=== PATIENT | female | born 1955 | race Caucasian/White ===

== ENCOUNTER 2021-07-27 16:00 | Emergency (ER) | payer OTHER ==
--- NOTE | 2021-07-27 16:50 | RAD REPORT ---
EXAM DESCRIPTION: RAD - Wrist Right 3 View - 07/27/2021 4:41 pm CLINICAL HISTORY: Right wrist pain status post injury FINDINGS: Impacted comminuted fracture of the distal radius with angulation present at the fracture site. No gross dislocation seen
[2021-07-27] MEDS ORDERED: NA CHLORIDE 0.9% 1,000 ML ONE (18:36)
[2021-07-27] MEDS ORDERED: KETAMINE HCL 500 MG/5 ML VIAL ONE (19:45)
--- NOTE | 2021-07-27 20:28 | RAD REPORT ---
EXAM DESCRIPTION: RAD - Wrist Right 2 View - 07/27/2021 8:13 pm CLINICAL HISTORY: Radial fracture FINDINGS: Splint immobilizes distal radial fracture in good alignment. Chip fracture from the ulnar styloid process
--- NOTE | 2021-07-27 20:32 | EDPHYS ---
Physician Documentation [facility] Name: Meeta Flores Age: 65 yrs Sex: Female : 1955 Arrival Date: 07/27/2021 Time: 16:13 Bed 18 Private MD: ED Physician Bucky Whitehead HPI: 07/27 18:03 This 65 yrs old Female presents to ER via Ambulatory with complaints of Fall Injury, jr8 Wrist Injury. 18:03 This is a 65-year-old female that presented to the emergency room after sustaining an jr8 accidental mechanical fall landing on her right wrist. [place] a pop with immediate deformity and swelling since the incident. Came to the emergency room for further evaluation at that time. Denies any other pain or injury from the fall. Historical: - Allergies: 16:15 No Known Allergies; ll1 - PMHx: 16:15 None; ll1 - PSHx: 16:15 None; ll1 - Immunization history:: Client reports having NOT received the Covid vaccine. - Social history:: Smoking status: Patient reports the use of cigarette tobacco products, smokes one pack cigarettes per day. ROS: 18:03 Eyes: Negative for injury, pain, redness, and discharge, ENT: Negative for injury, jr8 pain, and discharge, Neck: Negative for injury, pain, and swelling, Cardiovascular: Negative for chest pain, palpitations, and edema, Respiratory: Negative for shortness of breath, cough, wheezing, and pleuritic chest pain, Abdomen/GI: Negative for abdominal pain, nausea, vomiting, diarrhea, and constipation, Back: Negative for injury and pain, Skin: Negative for injury, rash, and discoloration, Neuro: Negative for headache, weakness, numbness, tingling, and seizure. 18:03 MS/extremity: Positive for decreased range of motion, deformity, pain, swelling, tenderness, of the Right wrist. Exam: 18:03 Constitutional: This is a well developed, well nourished patient who is awake, alert, jr8 and in no acute distress. Neck: Trachea midline, no thyromegaly or masses palpated, and no cervical lymphadenopathy. Supple, full range of motion without nuchal rigidity, or vertebral point tenderness. No Meningismus. Chest/axilla: Normal chest wall appearance and motion. Nontender with no deformity. No lesions are appreciated. Cardiovascular: Regular rate and rhythm with a normal S1 and S2. No gallops, murmurs, or rubs. Normal PMI, no JVD. No pulse deficits. Respiratory: Lungs have equal breath sounds bilaterally, clear to auscultation and percussion. No rales, rhonchi or wheezes noted. No increased work of breathing, no retractions or nasal flaring. Abdomen/GI: Soft, non-tender, with normal bowel sounds. No distension or tympany. No guarding or rebound. No evidence of tenderness throughout. Back: No spinal tenderness. No costovertebral tenderness. Full range of motion. Skin: Warm, dry with normal turgor. Normal color with no rashes, no lesions, and no evidence of cellulitis. Neuro: Awake and alert, GCS 15, oriented to person, place, time, and situation. Cranial nerves II-XII grossly intact. Motor strength 5/5 in all extremities. Sensory grossly intact. 18:03 Musculoskeletal/extremity: Extremities: grossly normal except: noted in the Right wrist: Patient has deformity to the right wrist with swelling and ecchymosis. Pulses 2+ radially with normal sensation and range of motion of fingers., Remainder of extremities unremarkable. Vital Signs: 16:13 BP 94 / 70; Pulse 81; Resp 17; Temp 98.0; Pulse Ox 96% ; Pain 3/10; ll1 18:26 BP 94 / 50; Pulse 85; Resp 18; Temp 98.2; Pulse Ox 98% on R/A; sl2 18:26 BP 105 / 68; Pulse 79; Resp 18; Pulse Ox 97% on R/A; sl2 19:05 BP 122 / 77; Pulse 78; Resp 18; Pulse Ox 97% on R/A; Weight 95.25 kg; Height 5 ft. 8 sl2 in. (172.72 cm); 19:05 Body Mass Index 31.93 (95.25 kg, 172.72 cm) sl2 [place] Coma Score: 17:00 Eye Response: spontaneous(4). Verbal Response: oriented(5). Motor Response: obeys sl2 commands(6). Total: 15. Trauma Score (Adult): 17:00 Eye Response: spontaneous(1); Verbal Response: oriented(1); Motor Response: obeys sl2 commands(2); Systolic BP: > 89 mm Hg(4); Respiratory Rate: 10 to 29 per min(4); Cr Score: 15; Trauma Score: 12 Procedures: 20:29 Reduction: of the right wrist, using traction, manipulation, Immobilized with OCL jr8 splint, Patient tolerated well. Post reduction film - reveals normal alignment. Moderate sedation: Pre-procedure assessment: the patient has been NPO 5 hour(s) prior to arrival, ASA physical classification: II - mild/mod systemic disease that does not interfere with daily routines, Airway assessment: able to hyperextend neck, able to maintain airway, can open mouth without difficulty, Mallampati classification of tongue size: II - faucial pillars and soft palate can be visualized, but uvula is masked by the base of the tongue, Monitoring during procedure: library monitor, continuous pulse oximetry, nurse at bedside at all times, Medications employed: Ketamine, 95 mg(s), Post-procedure assessment: the patient is moderately sedated, Castillo sedation score: 5 - sluggish response to a light glabellar tap, Respiratory status: even and unlabored, a reversal agent was not used. MDM: 16:14 Patient medically screened. jr8 20:29 Data reviewed: vital signs, nurses notes, radiologic studies, plain films. Data jr8 interpreted: Pulse oximetry: on room air is 97 %. Interpretation: normal. Counseling: I had a detailed discussion with the patient and/or guardian regarding: the historical points, exam findings, and any diagnostic results supporting the discharge/admit diagnosis, radiology results, the need for outpatient follow up, a orthopedic surgeon, to return to the emergency department if symptoms worsen or persist or if there are any questions or concerns that arise at home. ED course: Marked improvement of alignment post reduction of the right wrist. We will have her follow-up with orthopedics. Normal sensation and pulses with good cap refill noted post reduction as well. Return precautions given. Patient understands and will follow up and/or come back. 07/27 16:21 Order name: XRAY Wrist RIGHT 3 view; Complete Time: 17:36 jr8 07/27 19:57 Order name: XRAY Wrist RIGHT 2 view; Complete Time: 20:29 jr8 07/27 17:36 Order name: IV; Complete Time: 18:48 jr8 07/27 17:36 Order name: Conscious Sedation; Complete Time: 20:43 jr8 Administered Medications: 18:38 Drug: NS 0.9% 1000 ml Route: IV; Rate: 1000 ml; Site: left hand; [facility] 19:30 Follow up: Response: No adverse reaction; IV Status: Completed infusion; IV Intake: as6 1000ml 20:11 Drug: Ketalar (ketamine) 1 mg/kg Route: IVP; Site: left hand; [facility] 20:30 Follow up: Response: No adverse reaction as6 Disposition: 07/28 09:13 Co-signature as Attending Physician, Bucky Whitehead MD I agree with the assessment and raj plan of care. Disposition Summary: 07/27/21 20:32 Discharge Ordered Location: Home jr8 Problem: new jr8 Symptoms: have improved jr8 Condition: Stable jr8 Diagnosis - Ulnar Styloid Fracture Right Wrist jr8 - Distal Right Radius Fracture jr8 Followup: jr8 - With: Leodan Wetzel MD - When: 2 - 3 days - Reason: Recheck today's complaints, Continuance of care, Re-evaluation by your physician Discharge Instructions: - Discharge Summary Sheet jr8 - Wrist Fracture Treated With Immobilization jr8 - Wrist Fracture Treated With ORIF jr8 Forms: - Medication Reconciliation Form jr8 - Thank You Letter jr8 - Antibiotic Education jr8 - Prescription Opioid Use jr8 Prescriptions: - Ibuprofen 800 mg Oral Tablet - take 1 tablet by ORAL route every 12 hours As needed take with food; 20 tablet; jr8 Refills: 0, Product Selection Permitted Signatures: Dispatcher [employer] Bucky Kate MD MD cha Roszak, Josh, PA PA jr8 Ely García RN RN ll1 Jonelle Vizcarra RN RN sl2 Alba Hsu RN RN jh5 Carlos Kaur RN as6
--- NOTE | 2021-07-27 20:32 | ER ---
Nurse's Notes [facility] Name: Meeta Flores Age: 65 yrs Sex: Female : 1955 Arrival Date: 07/27/2021 Time: 16:13 Bed 18 Private MD: Diagnosis: Ulnar Styloid Fracture Right Wrist;Distal Right Radius Fracture Presentation: 07/27 16:13 Chief complaint: Patient states: R wrist pain s/p fall 20 min [employer]. Slight R foot pain ll1 also. Coronavirus screen: Vaccine status: Patient reports being unvaccinated. Client denies travel out of the [place] in the last 14 days. At this time, the client does not indicate any symptoms associated with coronavirus-19. Ebola Screen: Patient denies travel to an Ebola-affected area in the 21 days before illness onset. Initial Sepsis Screen: Does the patient meet any 2 criteria? No. Patient's initial sepsis screen is negative. Does the patient have a suspected source of infection? No. Patient's initial sepsis screen is negative. Risk Assessment: Do you want to hurt yourself or someone else? Patient reports no desire to harm self or others. Onset of symptoms was July 27, 2021. 16:13 Method Of Arrival: Ambulatory ll1 16:13 Acuity: NAUN 4 ll1 20:59 Care prior to arrival: None. Mechanism of Injury: Fall. Trauma event details: Injury as6 occurred in the [facility]. Triage Assessment: 20:53 General: Appears. as6 20:59 General: Behavior is calm, cooperative. Pain: Complains of pain in right wrist. as6 Historical: - Allergies: 16:15 No Known Allergies; ll1 - PMHx: 16:15 None; ll1 - PSHx: 16:15 None; ll1 - Immunization history:: Client reports having NOT received the Covid vaccine. - Social history:: Smoking status: Patient reports the use of cigarette tobacco products, smokes one pack cigarettes per day. Screenin:00 Abuse screen: Denies threats or abuse. Denies injuries from another. Nutritional sl2 screening: No deficits noted. Tuberculosis screening: No symptoms or risk factors identified. Primary Survey: 20:52 NO uncontrolled hemorrhage observed. A: Airway: patent. Breathing/Chest: Respiratory as6 pattern: regular, Respiratory effort: spontaneous. Circulation: Pulses: palpable . Disability Alert. Exposure/Environment: Obvious injury(ies) are noted at this time: r wrist. Reassessment Airway Airway Patent Breathing/Chest Respiratory pattern Regular Respiratory effort Spontaneous Circulation Pulses Palpable Disability Alert. Assessment: 20:42 Reassessment: Pt conscious sedation complete, see paper charting. jh5 Vital Signs: 16:13 BP 94 / 70; Pulse 81; Resp 17; Temp 98.0; Pulse Ox 96% ; Pain 3/10; ll1 18:26 BP 94 / 50; Pulse 85; Resp 18; Temp 98.2; Pulse Ox 98% on R/A; sl2 18:26 BP 105 / 68; Pulse 79; Resp 18; Pulse Ox 97% on R/A; sl2 19:05 BP 122 / 77; Pulse 78; Resp 18; Pulse Ox 97% on R/A; Weight 95.25 kg; Height 5 ft. 8 sl2 in. (172.72 cm); 19:05 Body Mass Index 31.93 (95.25 kg, 172.72 cm) sl2 [place] Coma Score: 17:00 Eye Response: spontaneous(4). Verbal Response: oriented(5). Motor Response: obeys sl2 commands(6). Total: 15. Trauma Score (Adult): 17:00 Eye Response: spontaneous(1); Verbal Response: oriented(1); Motor Response: obeys sl2 commands(2); Systolic BP: > 89 mm Hg(4); Respiratory Rate: 10 to 29 per min(4); Cr Score: 15; Trauma Score: 12 ED Course: 16:13 Patient arrived in ED. ll1 16:13 Slava Clark PA is PHCP. jr8 16:13 Bucky Whitehead MD is Attending Physician. jr8 16:15 Triage completed. ll1 16:16 Arm band placed on Patient placed in an exam room, on a stretcher. ll1 16:42 XRAY Wrist RIGHT 3 view In Process Unspecified. EDMS 17:00 Patient has correct armband on for positive identification. Bed in low position. Call sl2 light in reach. Side rails up X 1. Adult w/ patient. 17:00 Patient maintains SpO2 saturation greater than 95% on room air. sl2 17:43 Jonelle Vizcarra, RENETTA is Primary Nurse. sl2 20:13 XRAY Wrist RIGHT 2 view In Process Unspecified. EDMS 20:31 Leodan Wetzel MD is Referral Physician. jr8 20:33 Orthoglass splint: Sugar tong splint applied on right arm. Sling applied to right arm. oe 20:56 conscious sedation. IV discontinued, intact, bleeding controlled, No redness/swelling as6 at site. Pressure dressing applied. Administered Medications: 18:38 Drug: NS 0.9% 1000 ml Route: IV; Rate: 1000 ml; Site: left hand; sl2 19:30 Follow up: Response: No adverse reaction; IV Status: Completed infusion; IV Intake: as6 1000ml 20:11 Drug: Ketalar (ketamine) 1 mg/kg Route: IVP; Site: left hand; 5 20:30 Follow up: Response: No adverse reaction as6 Intake: 19:30 IV: 1000ml; Total: 1000ml. as6 21:01 PO: 100ml; IV: 1000ml; Total: 2100ml. as6 Output: 21:01 Urine: 500ml (Voided); Total: 500ml. as6 Outcome: 20:32 Discharge ordered by . jr8 21:00 Discharged to home via wheelchair, with friend. as6 21:00 Condition: stable 21:00 Discharge instructions given to patient, Instructed on discharge instructions, follow up and referral plans. medication usage, Demonstrated understanding of instructions, follow-up care, medications, splint care, Prescriptions given X 1. 21:01 Patient's length of stay in the Emergency Department was greater than 2 hours. pending as6 conscious sedation Patient's length of stay extended due to 21:02 Patient left the ED. as6 Signatures: Dispatcher [employer] EDMS Slava Clark PA PA jr8 Yoseph Leon Lynsay RN RN ll1 Jonelle Vizcarra, RN RN sl2 Alba Hsu RN RN 5 Carlos Kaur RN RN as6
[2021-07-27 21:21] VITALS: TEMP 98.2; O2SAT 97
[2021-07-27 21:22] VITALS: BP 122/77
== END 2021-07-27 21:02 | disposition home or self-care (01) ==
LOC: ER 16:00
PROC: 0PSHXZZ Reposition Right Radius, External Approach (ICD-10-PCS; principal; 2021-07-27)
PROC: 0PSKXZZ Reposition Right Ulna, External Approach (ICD-10-PCS; 2021-07-27)
DX: S52.611A Displaced fracture of right ulna styloid process, initial encounter for closed fracture (principal); S52.501A Unspecified fracture of the lower end of right radius, initial encounter for closed fracture; W19.XXXA Unspecified fall, initial encounter; F17.210 Nicotine dependence, cigarettes, uncomplicated
CPT/HCPCS: 96361; 73110; 73100; 96374; 99284; 25605; J7030